=== PATIENT | male | born 1960 | race Two or more races ===

== ENCOUNTER 2025-05-27 11:50 | Emergency (ER) | payer MEDICAID, SELFPAY ==
[2025-05-27 11:52] VITALS: BP 192/110; BP 202/113; PULSE 113; RESP 18; TEMP 36.4; O2SAT 97; BMI 23.0
--- NOTE | 2025-05-27 11:58 | EKG_ITS ---
[facility] Test Date: 2025-05-27 Pat Name: ERIKA ZULETA Department: Room: - Gender: Male Director Public Policy: : 1960 Requested By: Katherine Brown Order Number: [id number] Reading MD: Katherine Brown Measurements Intervals [place] Rate: 107 P: 34 IL: 144 QRS: -8 QRSD: 90 T: 36 QT: 326 QTc: 435 Interpretive Statements SINUS TACHYCARDIA MINIMAL VOLTAGE CRITERIA FOR LVH, CONSIDER NORMAL VARIANT [MEETS CRITERIA IN ONE OF: R(aVL), S(V1), R(V5), R(V5/V6)+S(V1)] ABNORMAL RHYTHM ECG No previous ECG available for comparison /store/S0/[id number].pdf
[2025-05-27 12:05] VITALS: PULSE 98; RESP 17; O2SAT 100
[2025-05-27 12:41] LABS: Basophils # (Auto) 0.1 Thou/mm3 (0.0-0.2); Basophils % (Auto) 1 % (0-2.5); Eosinophils # (Auto) 0.1 Thou/mm3 (0.0-0.5); Eosinophils % (Auto) 1 % (0-10); Hematocrit 42.9 % (41.0-53.0); Hemoglobin 14.4 g/dL (13.5-16.0); Immature Granulocytes Auto 0.02 Thou/mm3 (0.00-0.00); Lymphocytes # (Auto) 2.2 Thou/mm3 (1.0-4.8); Lymphocytes % (Auto) 23 % (10-50); Mean Corpuscular HGB Conc 33.6 g/dl (31.0-37.0); Mean Corpuscular Hemoglobin 29.2 pg (25.0-35.0); Mean Corpuscular Volume 87 fL (80-100); Monocytes # (Auto) 1.1 Thou/mm3 (0.0-0.8); Monocytes % (Auto) 11 % (0-12); Neutrophils # (Auto) 6.2 Thou/mm3 (1.8-7.7); Neutrophils % (Auto) 64 % (37-80); Nucleated Red Blood Cell # 0.00 Thou/mm3 (0.00-0.00); Nucleated Red Blood Cell % 0 /100 WBC (0); Platelet Count 326 Thou/mm3 (140-440); RDW Standard Deviation 40.0 fL (35.1-43.9); Red Blood Count 4.93 Miln/mm3 (4.50-5.90); White Blood Count 9.7 Thou/mm3 (3.8-10.6)
[2025-05-27 12:52] VITALS: BP 171/115; PULSE 101
[2025-05-27 13:05] LABS: Alanine Aminotransferase 20 U/L (10-49); Albumin, Serum 4.3 gm/dL (3.4-4.8); Albumin/Globulin Ratio 1.4 (1.2-2.2); Alkaline Phosphatase 71 U/L (46-116); Anion Gap 11 (7-16); Aspartate Amino Transferase 30 U/L (0-34); BUN/Creatinine Ratio 9 Ratio (12-20); Bilirubin,Total 0.8 mg/dL (0.3-1.2); Blood Urea Nitrogen 9 mg/dL (9-23); Calcium 9.5 mg/dL (8.3-10.6); Calcium (Corrected) 9.5 mg/dL (8.5-10.1); Carbon Dioxide 23.2 mMol/L (20.0-31.0); Chloride 106 mMol/L (98-107); Creatinine (Component) 1.0 mg/dL (0.6-1.3); Estimated Creatinine Clearance 59.3 mL/min (>60); Globulin 3.0 gm/dL (2.3-3.5); Glucose 98 mg/dL (74-106); Osmolality,Calculated 278 (275-295); Potassium 3.6 mMol/L (3.4-5.1); Sodium 140 mMol/L (136-145); Total Protein 7.3 gm/dL (5.7-8.2); eGFR > 60 See Note
[2025-05-27 13:08] LABS: Troponin I 0.067 ng/mL (0.0-0.045)
--- NOTE | 2025-05-27 13:34 | ECHO_ITS ---
Transthoracic Echo Report Ht (in): 63 Wt (lb): 130 Exam Location: Echo Lab Status: Preadmit Pyrotechnist: Alexandrea Wright Indications: Procedure Performed: BP: 171 / 115 HR: 101 Rhythm: Sinus Technical Quality: Fair MEASUREMENTS (Male / Female) Normal Values 2D ECHO LV Diastolic Diameter PLAX 4.3 cm 4.2 - 5.9 / 3.9 - 5.3 cm LV Systolic Diameter PLAX 2.8 cm IVS Diastolic Thickness 0.9 cm 0.6 - 1.0 / 0.6 - 0.9 cm LVPW Diastolic Thickness 0.9 cm 0.6 - 1.0 / 0.6 - 0.9 cm LV Relative Wall Thickness 0.4 LVOT Diameter 2.2 cm Aortic Root Diameter 3.2 cm LV Ejection Fraction MOD BP 64.9 % >= 55 % LV Cardiac Index MOD BP 3368.1 cm?/min?m? LV Ejection Fraction MOD 4C 65.4 % LV Cardiac Index MOD 4C 3542.1 cm?/min?m? LV Ejection Fraction 4C AL 66.7 % LV Cardiac Index 4C AL 3840.2 cm?/min?m? LV Ejection Fraction MOD 2C 66.2 % LV Cardiac Index MOD 2C 2895.8 cm?/min?m? LV Ejection Fraction 2C AL 68.2 % LV Cardiac Index 2C AL 3086.3 cm?/min?m? LA Volume Index 21.6 cm?/m? 16 - 28 cm?/m? DOPPLER AV Peak Velocity 153.0 cm/s AV Peak Gradient 9.4 mmHg AV Mean Gradient 5.0 mmHg AV Velocity Time Integral 33.1 cm AI Peak Velocity 191.0 cm/s AI Peak Gradient 14.6 mmHg AI Pressure Half Time 1495.0 ms LVOT Peak Velocity 106.0 cm/s LVOT Peak Gradient 4.5 mmHg LVOT Velocity Time Integral 20.8 cm LVOT Cardiac Index 4913.4 cm?/min?m? AV Area Cont Eq vti 2.4 cm? AV Area Cont Eq pk 2.6 cm? MV Area PHT 6.1 cm? MR Peak Velocity 476.0 cm/s MR Peak Gradient 90.6 mmHg Mitral E Point Velocity 91.2 cm/s Mitral A Point Velocity 98.0 cm/s Mitral E to A Ratio 0.9 LV E' Lateral Velocity 7.5 cm/s Mitral E to LV E' Lateral Ratio 12.1 LV E' Septal Velocity 5.1 cm/s Mitral E to LV E' Septal Ratio 17.8 TR Peak Velocity 242.0 cm/s TR Peak Gradient 23.4 mmHg FINDINGS Left Ventricle Normal left ventricular size, wall thickness, systolic function with no obvious regional wall motion abnormalities. There is grade I diastolic dysfunction of the left ventricle (impaired relaxation pattern). The ejection fraction is visually estimated at 55-60 %. Right Ventricle The right ventricle is normal in size and systolic function. Left Atrium The left atrium is normal by two-dimensional, color flow and Doppler imaging with no structural abnormalities, no thrombus formation present. Right Atrium The right atrium is normal by two-dimensional imaging, color flow and Doppler imaging with no structural abnormalities, no thrombus formation present. Atrial Septum The interatrial septum appears normal with no evidence of a shunt. Aorta The aorta is normal by two-dimensional, color flow and Doppler interrogation. Mitral Valve The mitral valve is normal by two-dimensional, color flow and Doppler interrogation. Mild mitral regurgitation. Aortic Valve The aortic valve is trileaflet and normal by two-dimensional, color flow and Doppler interrogation. Trace to mild aortic valve regurgitation. Tricuspid Valve The tricuspid valve is normal by two-dimensional, color flow and Doppler interrogation. There is mild tricuspid valve regurgitation. Pulmonic Valve The pulmonic valve is not well visualized. There is no significant pulmonic valve regurgitation. Vessels The pulmonary artery appears normal. The inferior vena cava pulmonary and hepatic veins appear normal. Pericardium The pericardium is normal by two-dimensional imaging. There is no significant pericardial effusion. CONCLUSIONS Indication: Chest pain Normal LV size and wall thickness. There is grade I diastolic dysfunction. Estimated EF at 55-60 %. The RV is normal in size and systolic function. Normal RVSP Mild MR and TR. Trace to mild AI. No pericardial effusion. Tomer Brewer (Electronically Signed) Final Date: 27 May 2025 19:24
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
[2025-05-27] MEDS: ASPIRIN EC 81 MG TABEC 162 MG PO (13:46)
[2025-05-27 15:00] LABS: Troponin I 0.061 ng/mL (0.0-0.045)
--- NOTE | 2025-05-27 15:07 | ESCONSULT_ITS ---
HPI Data of Consult Primary Care Provider: Kalpana Osorio DO Consult Narrative History of present illness: Patient is a 64-year-old male with past medical history of hypertension, meth use, and depression who presents to [facility] ED on 05/27/25 for thoughts of self harm. Cardiology was consulted because patient was also complaining of intermittent left sided chest pain for the past 1-2 months. Reports episodes last only a few seconds and happen about twice a week. Not associated with exertion. Started smoking meth 5 years ago due to depression and stress from his family. Takes medications for hypertension, pain, and sleep , does not know names but has 5. Patient has never seen a PCP or customer records division supervisor. On admission, troponin was elevated at 0.067. Potassium 3.6, otherwise other labs were unremarkable. EKG showed sinus tachycardia with HR of [address] or T wave abnormalities. Ordered echo to evaluate cardiac function. Past Medical History: as above. Family History: Father and mother had diabetes and hypertension. No known history of heart disease. All his brothers and sisters are all healthy. 3 kids but never been and lives alone. Surgical History: surgery for pneumothorax 35 years ago Social History: Smoked meth for the past 5 years. Smoked marijuana once a week for 15 years, quit 25 years ago. Denies history of smoking and alcohol use. Works on farm as grape harvester. Was born in [place] and came to the [place] in the 1960s, is currently trying to apply for greencard. Current Medications: as above Allergies: No known drug allergies cc:: cc: Exam Vital Signs Temp Pulse Resp BP Pulse Ox O2 Del Method 97.5 F 101 H 18 171/115 H 97 Room Air 05/27/25 11:52 05/27/25 12:52 05/27/25 11:52 05/27/25 12:52 05/27/25 11:52 05/27/25 11:52 Narrative Exam Physical Exam General: Awake and in no acute distress. Conversational and non-toxic appearing. Anxious. HEENT: Normocephalic, atraumatic, mucous membranes moist. Heart: Tachycardic. Regular rate and rhythm, normal S1 and S2, 2/6 diastolic murmur at apex. Lungs: Clear to auscultation with no wheezing or crackles. Abdomen: Soft, nondistended, nontender, positive bowel sounds. No guarding or rebound tenderness. Neurologic: Alert and oriented x3, no gross neurological deficit, and patient able to move all 4 extremities. Extremities: No edema. Skin: No rash or ecchymoses. Results Labs 05/27/25 12:22 05/27/25 12:22 Labs: Short CBC 05/27/25 Range/Units 12:22 WBC 9.7 (3.8-10.6) Thou/mm3 Hgb 14.4 (13.5-16.0) g/dL Hct 42.9 (41.0-53.0) % Plt Count 326 (140-440) Thou/mm3 BMP 05/27/25 12:22 Sodium 140 Potassium 3.6 Chloride 106 Carbon Dioxide 23.2 BUN 9 Creatinine 1.0 Glucose 98 Calcium 9.5 Cardiac Enzymes 05/27/25 05/27/25 Range/Units 12:22 14:17 Troponin I 0.067 H* 0.061 H* (0.0-0.045) ng/mL Liver Function 05/27/25 Range/Units 12:22 Total Bilirubin 0.8 (0.3-1.2) mg/dL AST 30 (0-34) U/L ALT 20 (10-49) U/L Alkaline Phosphatase 71 (46-116) U/L Albumin 4.3 (3.4-4.8) gm/dL Quality Measures Quality Measures none Advance care planning discussed with:: patient Medications Home Medications and Allergies Allergies Allergy/AdvReac Type Severity Reaction Status Date / Time No Known Allergies Allergy Mild Uncoded 02/27/09 16:23 Visit Medications Discontinued Medications Aspirin (Aspirin Ec 81 Mg Tabec) 162 mg PO X1 ONE Stop: 05/27/25 13:13 Last Admin: 05/27/25 13:46 Dose: 162 mg Hydralazine HCl (Hydralazine Hcl 10 Mg Tablet) 10 mg PO X1 ONE Stop: 05/27/25 12:02 Last Admin: 05/27/25 12:52 Dose: 10 mg Assessment & Plan Plan Patient is a 64-year-old male with past medical history of hypertension, meth use, and depression who presents to [facility] ED on 05/27/25 for thoughts of self harm. Cardiology was consulted because patient was also complaining of intermittent left sided chest pain for the past 1-2 months and found to have troponin of 0.067. #NSTEMI type II #Elevated troponin #Hypertensive emergency #Hx hypertension On admission, BP 192/110, tachycardic with HR 113. Troponin was elevated at 0.067 -> 0.061. Patient was very anxious on exam. Takes anti-hypertensive medication at home but does not recall name, possibly noncompliant. Patient does not have a PCP or customer records division supervisor. EKG showed sinus tachycardia with HR of [address] or T wave abnormalities. Plan: - Ordered echo to evaluate cardiac function - Given uncontrolled hypertension, tachycardia from anxiety, and current meth use, patient likely developed demand ischemia. No inpatient intervention required at this time. Will follow up outpatient for further cardiac management. #Hypokalemia Potassium 3.6 on admission - Recommend repletion #Suicidal ideation #Meth use Reports that he has been struggling with depression for the past 5 years, which made him turn to meth use. Likely source of patient's cardiomyopathy. Reporting thoughts of self harm per ED note. - Counseled on meth cessation - Recommend to provide patient resources for mental health support Thank you for your consultation, please do not hesitate to reach out if you have any question or concern Patient plan of care was discussed with the attending physician, Dr. Brewer. Kalpana Osorio, PGY-1 Attending Provider Attestation/Addendum I have personally seen and examined the patient separately on the above date of service and discussed the plan of care with the resident. I reviewed the resident Dr. Kalpana Osorio consultation progress note and agree with the resident findings and plan in the note above and have also edited the documentation to reflect my findings and plan. Patient admitted to the hospital with suicidal ideation but has been having some chest pain and occasionally over the last 2 months and also complained of some chest pressure. Initial troponin was 0.06 and cardiology consulted by the ED. EKG reviewed and shows sinus tachycardia with LVH. Blood pressure elevated on admission with systolic blood pressure of 170-190 mmHg. Patient is not taking any medications and does not see doctors regularly. History of meth use for the last 5 years and has been having depression. EKG without any acute ST-T changes history of ischemia. Troponins were only 0.06 x 2. Echocardiogram performed showed normal LV function RV function as well as stage I diastolic dysfunction and only trace to mild valvular abnormalities. No pericardial effusion. Patient recommended to follow-up with cardiology as outpatient but initially should go to primary care. Patient recommended to go to [facility] clinically with the residents and patient is willing to go. Patient recommended regarding abstinence from any kind of drugs including methamphetamine as well as marijuana. Management of the psychiatric issues as per the ED. Cardiology will sign off for now. Tomer Brewer M.D. Interventional Cardiology
[2025-05-27 15:40] LABS: Alcohol, Urine Negative (Negative); Amphetamine/Methamp Scrn,U Positive (Negative); Barbiturate Screen,Urine Negative (Negative); Benzodiazepines Screen,Urine Negative (Negative); Benzoylecgonine Screen, Ur Negative (Negative); Fentanyl Screen,Urine Negative (Negative); Opiate Screen,Urine Negative (Negative); THC Screen,Urine Negative (Negative)
[2025-05-27 16:08] VITALS: BP 153/100; PULSE 91; RESP 17; TEMP 36.7; O2SAT 98
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
--- NOTE | 2025-05-27 18:03 | PD.EDADDENDU ---
Emergency Room Addendum Addendum Narrative: I took over the care from Dr. Mckee at 6 PM on 05/27/2025, see notes for complete H&P and ED course. Pending psychiatric placement. At 6 AM on 05/27/2025, the care of the patient was transferred to Dr. Shaikh. During my watch, the patient remained stable. Jackson Sousa MD
[2025-05-27 18:12] VITALS: BP 162/101; PULSE 90; RESP 17; TEMP 36.4; O2SAT 100
--- NOTE | 2025-05-27 20:00 | PC.NURSE ---
At this time, pt is alert/oriented x3. Respirations are even and unlabored. No s/s of acute distress noted. Pt denies of any plan to harm self/others. Discussed plan of care with pt, verbalized understanding.
[2025-05-27 21:34] VITALS: BP 150/98; PULSE 79; RESP 18; TEMP 36.1; O2SAT 100
[2025-05-27 22:21] LABS: Acetaminophen < 2.0 mcg/mL (10.0-20.0); Magnesium 2.0 mg/dL (1.6-2.6); Salicylate < 3.0 mg/dL; Thyroid Stimulating Hormone 5.54 uIU/mL (0.55-4.78)
[2025-05-27 22:23] LABS: Troponin I 0.066 ng/mL (0.0-0.045)
[2025-05-27 22:28] LABS: Collection Type, Urine Clean Catch; Squamous Epithelial Cell,Urine 0 /hpf (0-5)
[2025-05-27 22:48] LABS: Bilirubin,Urine Negative (Negative); Blood,Urine Negative (Negative); Clarity,Urine Clear (Clear/Hazy); Color,Urine Colorless (Lt Yel-Yel); Culture Indicated,Urine Not Indicated; Glucose, Urine Negative (Negative); Ketones,Urine Negative (Negative); Leukocyte Esterase,Urine Negative (Negative); Nitrite,Urine Negative (Negative); PH,Urine 7.0 (5.0-7.0); Protein,Urine Negative (Neg - Trace); RBC,Urine 1 /hpf (0-3); Specific Gravity,Urine 1.011 (1.001-1.035); Urobilinogen,Urine Negative mg/dL (0.0-1.0); WBC,Urine < 1 /hpf (0-5)
[2025-05-28] VITALS (7 sets, daily range): BP systolic 117–148; BP diastolic 74–90; PULSE 76–99; RESP 15–19; TEMP 36.1–36.8; O2SAT 95–99
--- NOTE | 2025-05-28 02:00 | PC.NURSE ---
Pt resting with eyes closed. Respirations are even and unlabored. No s/s of acute distress noted. Plan of care ongoing.
--- NOTE | 2025-05-28 06:10 | PC.NURSE ---
Pt awake/oriented x3. Pt out of bed to use restroom. Pt ambulated to restroom with steady gate. No s/s of acute distress noted. Plan of care ongoing.
--- NOTE | 2025-05-28 07:20 | PD.EDADDENDU ---
Emergency Room Addendum <Mery Shaikh MD - Last Filed: 05/28/25 07:21> Addendum Narrative: Assumed care of patient at change of shift. <Catie España - Last Filed: 05/28/25 10:47> Addendum Narrative: 0600: Care assumed from Dr. Sousa, the previous shift emergency physician. Past medical, surgical, social and family history reviewed. Vitals and home medications reviewed. I will assume the care of the patient at this time, pending LPS facility placement. Please refer to the emergency department record for history and examination from initial visit.?The following addendum documentation note is intended to reflect any pending information, findings, or radiology results not included in the patient?s initial chart. Patient has been accepted at [facility]. EMS p/u at 11:00a. 1048a: EMS here to transfer patient. He has remained stable through ED course.
--- NOTE | 2025-05-28 10:36 | PC.CC ---
Pt is a 64 yo male BIBA 5150 DTS. Pt disclosed SI with plan on 05/27/25. Pt was accepted to [facility] on 05/28/25 @1000- Accepting Dr. Santos, Sending ER Dr. Shaikh. Spoke with [facility], pt will go to [address] [facility]. P/u ETA 1100.
== END 2025-05-28 10:45 ==
PROVIDERS: Emergency Medicine; Emergency Provider Emergency Medicine
DX: R45.851 Suicidal ideations (principal); I10 Essential (primary) hypertension; F15.90 Other stimulant use, unspecified, uncomplicated; Z91.148 Patient's other noncompliance with medication regimen for other reason; R07.89 Other chest pain
CPT/HCPCS: 36415; 80053; 80307; 80320; 80329; 81001; 83735; 84443; 84484; 85025; 93005; 93306; 96127; 99284; A9270; G0480

== ENCOUNTER 2025-06-08 20:54 | Emergency (ER) | payer MEDICAID, SELFPAY ==
--- NOTE | 2025-06-08 21:00 | EKG_ITS ---
[facility] Test Date: 2025-06-08 Pat Name: ERIKA ZULETA Department: Room: - Gender: Male Infant Toddler Lead Teacher: : 1960 Requested By: Jackson Bennett Order Number: [id number] Reading MD: Jackson Bennett Measurements Intervals [place] Rate: 79 P: 42 NM: 167 QRS: 1 QRSD: 85 T: 31 QT: 352 QTc: 404 Interpretive Statements SINUS RHYTHM Compared to ECG 05/27/2025 12:12:23 Sinus tachycardia no longer present /store/[id number]
--- NOTE | 2025-06-08 21:00 | XR_ITS ---
EXAMINATION: AP chest single view TECHNIQUE: 1. AP portable upright chest single view Date and time: May, 2128 hours INDICATIONS: Shortness breath chest pain today. FINDINGS: Normal heart size No pneumonia or pulmonary edema. Moderate osteopenia IMPRESSION: No pneumonia or pulmonary edema
--- NOTE | 2025-06-08 21:00 | EDNOTE_ITS ---
ED Chest Pain RME/HPI General Chief Complaint: Anxiety Stated Complaint: CHEST PAIN Time Seen by Provider: 06/08/25 21:09 Arrival date/time: 06/08/25 20:54 RME / HPI RME / HPI narrative: See MDM for Dr. Sousa's HPI Documentation. Related Data Allergies Allergy/AdvReac Type Severity Reaction Status Date / Time No Known Allergies Allergy Mild Uncoded 02/27/09 16:23 Review of Systems Review of Systems Systems Reviewed: All systems reviewed, normal except as documented Past Medical History Past Medical History CARDIAC: Positive Hypertension Social History SUBSTANCE USE: methamphetamine ED Exam Narrative Physical exam: See MDM for Dr. Sousa's Physical Exam Documentation. Course Quality Measures none Orders Category Date Time Status EKG (ED ONLY) *Do not use* NOW Care 06/08/25 21:00 Completed EKG (ED Only) Stat Exams 06/08/25 21:00 Draft XR chest 1V portable Stat Exams 06/08/25 21:00 Completed Acetaminophen Stat Lab 06/08/25 21:12 Completed Alcohol, Blood Medical Stat Lab 06/08/25 21:12 Completed BNP [B-Type Natriuretic Peptide] Stat Lab 06/08/25 21:12 Completed Bilirubin,Direct Stat Lab 06/08/25 21:12 Completed CBC Stat Lab 06/08/25 21:12 Completed CMP [Comprehensive Metabolic Panel] Stat Lab 06/08/25 21:12 Completed D-Dimer Stat Lab 06/08/25 21:12 Completed Drug Screen,Urine Stat Lab 06/08/25 22:02 Completed Free T3 Stat Lab 06/08/25 21:12 Completed Free T4 (Free Thyroxine) Stat Lab 06/08/25 21:12 Completed Magnesium Stat Lab 06/08/25 21:12 Completed Salicylate Stat Lab 06/08/25 21:12 Completed TSH [Thyroid Stimulating Hormone] Stat Lab 06/08/25 21:12 Completed Troponin I Stat Lab 06/08/25 21:12 Completed UA, C/S IF [Urinalysis, C/S if Indicated] Stat Lab 06/08/25 22:02 Completed Acetaminophen Tab [Tylenol ES Tab] Med 06/08/25 21:01 Discontinued 1,000 mg PO X1 ONE Ibuprofen Tab [Motrin Tab] Med 06/08/25 21:01 Discontinued 600 mg PO X1 ONE Vital Signs Vital signs: Vital Signs Temperature 98.0 F 06/08/25 21:16 Pulse Rate 83 06/08/25 21:16 Respiratory Rate 16 06/08/25 21:16 Blood Pressure 158/91 H 06/08/25 21:16 Pulse Oximetry (%) 99 06/08/25 21:16 Oxygen Delivery Method Room Air 06/08/25 21:16 Chest Pain MDM Narrative MDM Narrative:: This section includes all my notes and documentations, including HPI, PE, and ED course. Jackson Sousa MD HPI: 64 y/o male with Hx of HTN and Methamphetamine Use BIBA presesnts with chest pain. Has trouble describing the onset and quality/quantity and exacerba ting/relieving factors. Reports no shortness of breath. No cough. No fever or chills. No palpitations. No other complaints. ROS: All negative except as documented in HPI. Physical Exam: General: Alert and oriented. No acute distress. Eyes: Conjunctivae and lids clear. ENT: No nasal congestion. Neck: Supple. No JVD. Heart: RRR. Lungs: No respiratory distress. Good air movement. No rhonchi, wheezing, rales. Chest: Palpation of the sternum area reproduces his pain. Abdomen: Soft and nontender. Legs: No clubbing, cyanosis, edema. Skin: Warm and dry. Neuro: Alert and oriented X 3. I reviewed EMS notes. I reviewed all diagnostic test results: My interpretation of the EKG: NSR (79 bpm) with no ST-T changes. My interpretation of the chest x-ray is: NAD. Blood tests and urine tests unremarkable, including negative troponin/D- dimer/BNP. At this point, diagnoses include: Chest Wall Pain Treatment here included: Tylenol 1000 mg Motrin 600 mg He felt much better. Recommended more outpatient cardiac workup. Based on my best medical judgment, made decision no further evaluation or treatment indicated at this time. Patient understands and agrees to the dis charge instructions customized and printed, see below. Discharge instructions from Dr. Sousa: 1. After extensive evaluation, there is no life-threatening condition.? Such as heart attack or pulmonary embolism (blood clots in your lungs) or pneumothorax (collapsed lung). 2. Your pain is originating from the chest wall and not from an internal organ.? The chest wall has many joints and muscles between the ribs, so sprains and strains are common.?? 3. Apply ice or heat if helpful.? Tylenol/ibuprofen as needed. 4. See a private doctor on 06/11/2025. To make sure there is no serious underlying heart condition, ask to help you get more tests for your heart that cannot be done here in the ER.? Such as Holter Monitor (cardiac monitoring at home from a day to even a month), heart stress test (on treadmill or with medication), echocardiogram (imaging of your heart structures), heart catherization (checking for blockages in your heart arteries), and a referral to see a [employer] Inspector.? 5. Seek immediate medical care with worsening or with any concerns.?? Jackson Sousa MD Patient data External records reviewed:: [facility] previous records (Reviewed prior ED records from 05/28/25. Patient was seen for Suicidal ideation.) and EMS form Clinical information provided by:: patient and EMS Social determinants that could affect healthcare access:: substance use (Methamphetamine ) Patient has the following chronic illnesses:: HTN, Recreational drug use How is presenting disease/condition affected by chronic disease/condition?: exacerbated by Evaluation data The following diagnostics were reviewed and interpreted by me:: lab results, radiology exam(s) and EKG tracing(s) (My interpretation of the EKG: NSR (79 bpm) with no ST-T changes. Jackson Sousa MD) Lab and/or radiology exams considered but not ordered:: None Interpretation Summary: I reviewed all diagnostic test results: My interpretation of the EKG: NSR (79 bpm) with no ST-T changes. My interpretation of the chest x-ray is: NAD. Blood tests and urine tests unremarkable, including negative troponin/D- dimer/BNP. Medications / Prescriptions Medications or Prescriptions considered but not ordered:: None Medication administrations:: Medication Administration History Discontinued Medications Acetaminophen (Acetaminophen 500 Mg Tablet) 1,000 mg PO X1 ONE Stop: 06/08/25 21:02 Last Admin: 06/08/25 21:26 Dose: 1,000 mg Documented By: DB Ibuprofen (Ibuprofen Tab 600 Mg Tablet) 600 mg PO X1 ONE Stop: 06/08/25 21:02 Last Admin: 06/08/25 21:26 Dose: 600 mg Documented By: SMITH Treatment here included: Tylenol 1000 mg Motrin 600 mg Consultations Consultation(s) initiated? (list below): No Diagnosis Chest Pain Differential Diagnosis: pneumothorax, stable angina, unstable angina pectoris, atypical chest pain, st elevation myocardial infarction, costochondritis, chest pain and biliary colic Most likely diagnosis given after review of the tests above:: Chest Wall Pain Admission Indicated Admission indicated?: not indicated Explain why admission is indicated or not indicated:: With significant improvement and no condition needing emergent intervention, there was no indication for admission. Admission Request Was there a request for admission?: No Disposition Plan Disposition Plan: Discharge Discharge Attestation Discharge Attestation: The patient and all family members were given an opportunity to ask questions and understood the discharge instructions. Discharge instructions specifically effects, indications for sooner follow up or return to the emergency department, and the expected course of current diagnosis. Patient condition: Stable Discharge Plan Plan Patient Disposition: HOME (Self Care) Prescriptions/Referrals Referrals: No Primary/Family,Physician [Primary Care Provider] - In 1 week Problem List Clinical Impression: Chest wall pain Patient/Caregiver Discharge Instructions Discharge Activity: activity as tolerated Education Materials: ED Chest Wall Strain (Child) Additional Instructions: Discharge instructions from Dr. Sousa: 1. After extensive evaluation, there is no life-threatening condition.? Such as heart attack or pulmonary embolism (blood clots in your lungs) or pneumothorax (collapsed lung). 2. Your pain is originating from the chest wall and not from an internal organ.? The chest wall has many joints and muscles between the ribs, so sprains and strains are common.?? 3. Apply ice or heat if helpful.? Tylenol/ibuprofen as needed. 4. See a private doctor on 06/11/2025. To make sure there is no serious underlying heart condition, ask to help you get more tests for your heart that cannot be done here in the ER.? Such as Holter Monitor (cardiac monitoring at home from a day to even a month), heart stress test (on treadmill or with medication), echocardiogram (imaging of your heart structures), heart catherization (checking for blockages in your heart arteries), and a referral to see a [employer] Inspector.? 5. Seek immediate medical care with worsening or with any concerns.?? Print Language: Com[place] Stand Alone Forms: [employer] Award Info., Patient Portal Info Letter
[2025-06-08 21:06] VITALS: PULSE 96; RESP 19; O2SAT 96; BMI 23.9
[2025-06-08 21:16] VITALS: BP 158/91; PULSE 83; RESP 16; TEMP 36.7; O2SAT 99
[2025-06-08 21:24] LABS: Basophils # (Auto) 0.1 Thou/mm3 (0.0-0.2); Basophils % (Auto) 1 % (0-2.5); Eosinophils # (Auto) 0.5 Thou/mm3 (0.0-0.5); Eosinophils % (Auto) 6 % (0-10); Hematocrit 39.8 % (41.0-53.0); Hemoglobin 13.3 g/dL (13.5-16.0); Immature Granulocytes Auto 0.02 Thou/mm3 (0.00-0.00); Lymphocytes # (Auto) 2.6 Thou/mm3 (1.0-4.8); Lymphocytes % (Auto) 29 % (10-50); Mean Corpuscular HGB Conc 33.4 g/dl (31.0-37.0); Mean Corpuscular Hemoglobin 29.4 pg (25.0-35.0); Mean Corpuscular Volume 88 fL (80-100); Monocytes # (Auto) 0.9 Thou/mm3 (0.0-0.8); Monocytes % (Auto) 10 % (0-12); Neutrophils # (Auto) 4.8 Thou/mm3 (1.8-7.7); Neutrophils % (Auto) 54 % (37-80); Nucleated Red Blood Cell # 0.00 Thou/mm3 (0.00-0.00); Nucleated Red Blood Cell % 0 /100 WBC (0); Platelet Count 270 Thou/mm3 (140-440); RDW Standard Deviation 40.3 fL (35.1-43.9); Red Blood Count 4.53 Miln/mm3 (4.50-5.90); White Blood Count 8.8 Thou/mm3 (3.8-10.6)
[2025-06-08] MEDS: ACETAMINOPHEN 500 MG TABLET 1000 MG PO (21:26)
[2025-06-08] MEDS: IBUPROFEN TAB 600 MG TABLET PO (21:26)
[2025-06-08 21:37] LABS: D-Dimer 442 ng/mL (<600)
[2025-06-08 21:45] LABS: B-Type Natriuretic Peptide < 20 pg/mL (0-100)
[2025-06-08 21:51] LABS: Acetaminophen < 2.0 mcg/mL (10.0-20.0); Alanine Aminotransferase 22 U/L (10-49); Albumin, Serum 4.0 gm/dL (3.4-4.8); Albumin/Globulin Ratio 1.4 (1.2-2.2); Alcohol, Blood Medical < 3.0 mg/dL (0-10.0); Alkaline Phosphatase 79 U/L (46-116); Anion Gap 9 (7-16); Aspartate Amino Transferase 25 U/L (0-34); BUN/Creatinine Ratio 9 Ratio (12-20); Bilirubin,Direct < 0.1 mg/dL (0.0-0.3); Bilirubin,Total 0.3 mg/dL (0.3-1.2); Blood Urea Nitrogen 10 mg/dL (9-23); Calcium 9.6 mg/dL (8.3-10.6); Calcium (Corrected) 9.6 mg/dL (8.5-10.1); Carbon Dioxide 27.5 mMol/L (20.0-31.0); Chloride 107 mMol/L (98-107); Creatinine (Component) 1.1 mg/dL (0.6-1.3); Estimated Creatinine Clearance 53.9 mL/min (>60); Globulin 2.8 gm/dL (2.3-3.5); Glucose 87 mg/dL (74-106); Magnesium 2.1 mg/dL (1.6-2.6); Osmolality,Calculated 282 (275-295); Potassium 4.0 mMol/L (3.4-5.1); Salicylate < 3.0 mg/dL; Sodium 143 mMol/L (136-145); Thyroid Stimulating Hormone 9.82 uIU/mL (0.55-4.78); Total Protein 6.8 gm/dL (5.7-8.2); eGFR > 60 See Note
[2025-06-08 21:54] LABS: Troponin I 0.049 ng/mL (0.0-0.045)
[2025-06-08 22:08] LABS: Collection Type, Urine Clean Catch; RBC,Urine 0 /hpf (0-3); Squamous Epithelial Cell,Urine 0 /hpf (0-5); WBC,Urine 0 /hpf (0-5)
[2025-06-08 22:39] LABS: Bilirubin,Urine Negative (Negative); Blood,Urine Negative (Negative); Clarity,Urine Clear (Clear/Hazy); Color,Urine Colorless (Lt Yel-Yel); Culture Indicated,Urine Not Indicated; Glucose, Urine Negative (Negative); Ketones,Urine Negative (Negative); Leukocyte Esterase,Urine Negative (Negative); Nitrite,Urine Negative (Negative); PH,Urine 7.0 (5.0-7.0); Protein,Urine Negative (Neg - Trace); Specific Gravity,Urine 1.008 (1.001-1.035); Urobilinogen,Urine Negative mg/dL (0.0-1.0)
[2025-06-08 22:49] LABS: Amphetamine/Methamp Scrn,U Negative (Negative); Barbiturate Screen,Urine Negative (Negative); Benzodiazepines Screen,Urine Negative (Negative); Benzoylecgonine Screen, Ur Negative (Negative); Fentanyl Screen,Urine Negative (Negative); Opiate Screen,Urine Negative (Negative); THC Screen,Urine Negative (Negative)
[2025-06-08 22:59] LABS: Free T3 3.3 pg/mL (2.3-4.2); Free T4 (Free Thyroxine) 0.97 ng/dL (0.89-1.76)
[2025-06-08 23:05] VITALS: BP 107/68; PULSE 92; RESP 16; TEMP 36.7; O2SAT 99
== END 2025-06-08 23:05 | disposition home or self-care (01) ==
PROVIDERS: Emergency Provider Emergency Medicine
DX: F41.9 Anxiety disorder, unspecified (principal); I10 Essential (primary) hypertension
CPT/HCPCS: 36415; 71045; 80053; 80307; 80320; 80329; 81001; 82248; 83735; 83880; 84439; 84443; 84481; 84484; 85025; 85379; 93005; 99283; A9270; G0480